=== PATIENT | male | born 1995 | race Two or more races ===

== ENCOUNTER 2018-08-08 17:44 | Emergency (ER) | payer OTHER ==
[~2018-08-08] VITALS: Ht 167.6 cm; Wt 70.3 kg
[2018-08-08 17:59] VITALS: BP 129/81
[2018-08-08] MEDS ORDERED: PROPARACAINE OPHTH 0.5%, 15ML ONE (18:35)
== END 2018-08-08 19:52 | disposition home or self-care (01) ==
LOC: ED 19:50
DX: H10.12 Acute atopic conjunctivitis, left eye (principal)
CPT/HCPCS: 99283

== ENCOUNTER 2018-09-03 12:54 | Emergency (ER) | payer OTHER ==
[~2018-09-03] VITALS: Ht 167.6 cm; Wt 71.0 kg
[2018-09-03 14:19] VITALS: BP 109/67
[2018-09-03 14:20] LABS: BASOPHILS # (AUTO) 0.03 x10^3/uL (0-0.3); BASOPHILS % (AUTO) 0 % (0-1); EOSINOPHILS # (AUTO) 0.25 x10^3/uL (0-0.8); EOSINOPHILS % (AUTO) 4 % (1-7); LYMPHOCYTES # (AUTO) 1.37 x10^3/uL (1-6.1); LYMPHOCYTES % (AUTO) 21 % (22-44); MD NO; MEAN CORPUSCULAR HEMOGLOBIN 25.4 pg (27.5-34.5); MEAN CORPUSCULAR VOLUME 76.9 fL (81-97); MEAN PLATELET VOLUME 7.8 fL (7.4-10.4); MONOCYTES # (AUTO) 0.45 x10^3/uL (0-1.4); MONOCYTES % (AUTO) 7 % (2-9); NEUTROPHILS % (AUTO) 69 % (42-75); PLATELET COUNT 250 x10^3/uL (130-400); RED BLOOD COUNT 5.67 x10^6/uL (4.38-5.82); RED CELL DISTRIBUTION WIDTH 17.1 % (9.4-14.8)
[2018-09-03 14:26] LABS: ANION GAP 7 mmol/L (5-15); CALCIUM 9.2 mg/dL (8.5-10.1); CHLORIDE 109 mmol/L (98-107); CREATININE 1.02 mg/dL (0.7-1.3)
== END 2018-09-03 14:55 | disposition home or self-care (01) ==
LOC: ED 13:40
DX: J00 Acute nasopharyngitis [common cold] (principal)
CPT/HCPCS: 36415; 71046; 80048; 85025; 93005; 99284